=== PATIENT | male | born 1960 | race African-American/Black ===

== ENCOUNTER 2017-02-13 10:31 | Emergency (ER) | payer OTHER ==
[~2017-02-13] VITALS: Ht 175.3 cm; Wt 95.3 kg
--- NOTE | ~2017-02-13 | EKG ---
[facility] [employer] [place] [address] ELECTROCARDIOGRAM REPORT Name: KATIA GLYNN Room #: DEP MANDO Prado#: [id number] Admission: 02/13/17 Attend Phys: Discharge: 02/13/17 Date of : 56 Report #: [id number] THIS REPORT FOR: //name// [facility] ED Test Date: 2017-02-13 Test Time: 10:49:51 Pat Name: KATIA GLYNN Department: Room: Gender: Child Guidance Counselor: MYA : 1960 Requested By: Lizette Napier Order Number: [id number] MD: Ashkan Colbert Measurements Intervals [place] Rate: 83 P: 68 AK: 160 QRS: -19 QRSD: 86 T: 35 QT: 367 QTc: 432 Interpretive Statements Sinus rhythm Baseline wander in lead(s) V3 No previous ECG available for comparison Electronically Signed On 02-14-2017 7:50:05 CDT by Ashkan Colbert [email or web address] <ELECTRONICALLY SIGNED> By: Ashkan Colbert MD, [facility] 02/14/17 0750 1049 1049 Ashkan Colbert MD, FACC /EPI
[2017-02-13 10:54] LABS: ABSOLUTE NEUTROPHILS 3.8 thou/uL (1.4-8.2); BASOPHILS 1.1 % (0.0-2.0); EOSINOPHILS 3.3 % (0.0-3.0); HEMATOCRIT 40.7 % (42.0-52.0); LYMPHOCYTES 28.3 % (24.0-44.0); MCH 31.6 pg (26.0-34.0); MCHC 34.5 g/dL (28.0-37.0); MCV 91.6 fL (80.0-100.0); MONOCYTES 8.9 % (1.0-8.0); PLATELET COUNT 238 thou/uL (150-400); POLYS 58.4 % (36.0-66.0); RBC 4.44 mil/uL (4.50-6.00); RDW 14.1 % (10.5-14.5); WBC 6.5 thou/uL (4.0-11.0)
[2017-02-13 11:03] LABS: ANION GAP 8 mmol/L (7-16); BUN 17 mg/dL (7-18); CALCIUM 8.6 mg/dL (8.5-10.1); CHLORIDE 105 mmol/L (98-107); CO2 26 mmol/L (21-32); CREATININE 1.1 mg/dL (0.7-1.3); GLUCOSE 116 mg/dL (74-106); POTASSIUM 4.3 mmol/L (3.5-5.1); SODIUM 139 mmol/L (136-145)
[2017-02-13 11:08] LABS: MANUAL DIFF NO
[2017-02-13 11:11] LABS: TROPONIN-I < 0.04 ng/mL (<0.04-0.07)
[2017-02-13] MEDS ORDERED: NAPROSYN500 MG PO (11:28)
[2017-02-13] MEDS ORDERED: LIDODERM 5%1 PATC1 TRANSDERM (11:28)
[2017-02-13 12:02] VITALS: BP 115/77
== END 2017-02-13 11:32 | disposition home or self-care (01) ==
LOC: ER 10:31
PROVIDERS: Emergency Medicine
DX: M94.0 Chondrocostal junction syndrome [Tietze] (principal); F17.200 Nicotine dependence, unspecified, uncomplicated; F10.99 Alcohol use, unspecified with unspecified alcohol-induced disorder